=== PATIENT | female | born 1965 | race Caucasian/White ===

== ENCOUNTER 2018-12-29 13:19 | Emergency (ER) | payer MEDICARE, OTHER ==
[2018-12-29 13:23] VITALS: RESP 16; TEMP 97.8
--- NOTE | 2018-12-29 14:14 | ED ---
General Adult HPI - General Chief complaint: Extremity Problem,Nontraumatic Stated complaint: Shoulder pain Time Seen by Provider: 12/29/18 13:33 Source: patient, RN notes reviewed Mode of arrival: ambulatory Limitations: no limitations - History of Present Illness Initial comments: 53-year-old female presents emergency Department chief complaint of chronic neck and back pain. Patient states that she recently moved to 5 days ago from [place]. Patient states that she had a large amount lifting. Patient now has pain in her right trapezius region and radiating down her right arm. She also said chronic sciatica in which she has bilateral leg intermittent symptoms. She states that last time she had symptoms she was seen here. Patient states that she has no focal weakness denies any current headache, dizziness, blurred vision no chest pain or shortness of breath. Patient has not taken any current pain medicationsPatient denies any bowel bladder incontinence or retention - Related Data Home Medications Medication Instructions Recorded Confirmed ALPRAZolam [Xanax] 1 mg PO BID 10/26/15 10/26/15 Divalproex [Depakote] 250 mg PO TID 10/26/15 10/26/15 PARoxetine HCL [Paxil] 20 mg PO DAILY 10/26/15 10/26/15 Previous Rx's Medication Instructions Recorded HYDROcodone/APAP 5-325MG [[place] 1 tab PO Q6HR PRN #15 tab 10/26/15 5-325] Baclofen [Lioresal] 10 mg PO TID PRN #20 tablet 11/10/15 predniSONE 60 mg PO DAILY #30 tab 11/13/15 Cyclobenzaprine [Flexeril] 10 mg PO TID PRN #15 tab 12/29/18 predniSONE 50 mg PO DAILY #5 tab 12/29/18 Allergies Allergy/AdvReac Type Severity Reaction Status Date / Time acetaminophen Allergy Unknown Verified 12/29/18 13:24 [From Tylenol-Codeine #3] codeine phosphate Allergy Unknown Verified 12/29/18 13:24 [From Tylenol-Codeine #3] naproxen Allergy Unknown Verified 12/29/18 13:24 Review of Systems ROS Statement: Those systems with pertinent positive or pertinent negative responses have been documented in the HPI. ROS Other: All systems not noted in ROS Statement are negative. Past Medical History Past Medical History: No Reported History Additional Past Medical History / Comment(s): chronic pain due to cervical fracture. History of Any Multi-Drug Resistant Organisms: None Reported Past Surgical History: Hysterectomy Past Psychological History: Anxiety, Bipolar, Depression Smoking Status: Current every day smoker Past Alcohol Use History: None Reported Past Drug Use History: None Reported General Exam Limitations: no limitations General appearance: alert, in no apparent distress Head exam: Present: atraumatic, normocephalic, normal inspection Eye exam: Present: normal appearance, PERRL, EOMI. Absent: scleral icterus, conjunctival injection, periorbital swelling ENT exam: Present: normal exam, mucous membranes moist Neck exam: Present: normal inspection, tenderness (Trapezius tenderness), full ROM. Absent: meningismus, lymphadenopathy Respiratory exam: Present: normal lung sounds bilaterally. Absent: respiratory distress, wheezes, rales, rhonchi, stridor Cardiovascular Exam: Present: regular rate, normal rhythm, normal heart sounds. Absent: systolic murmur, diastolic murmur, rubs, gallop, clicks GI/Abdominal exam: Present: soft, normal bowel sounds. Absent: distended, tenderness, guarding, rebound, rigid Extremities exam: Present: other (Extremity strength equal bilaterally upper and lower 5/5, neurovascular intact, radial pulses equal probably, pedal pulses equal) Back exam: Present: full ROM, tenderness, paraspinal tenderness (Lumbar). Absent: vertebral tenderness Neurological exam: Present: alert, oriented X3, CN II-XII intact, reflexes normal. Absent: motor sensory deficit Skin exam: Present: warm, dry, intact, normal color. Absent: rash Course Vital Signs 12/29/18 13:20 Temperature 97.8 F Pulse Rate 65 Respiratory 16 Rate Blood Pressure 100/71 O2 Sat by Pulse 95 Oximetry Medical Decision Making - Medical Decision Making X-ray of cervical spine, x-ray of the lumbar spine shows chronic changes no acute abnormality. Patient symptoms are consistent with radiculopathy symptoms. She will be given prednisone at this time she is advised follow-up PCP and return for any worsening symptoms. Disposition Clinical Impression: Cervical radiculopathy, Low back pain Disposition: HOME SELF-CARE Condition: Stable Instructions (If sedation given, give patient instructions): Cervical Radiculopathy (ED) Additional Instructions: Please return to the Emergency Department if symptoms worsen or any other concerns. Prescriptions: Cyclobenzaprine [Flexeril] 10 mg PO TID PRN #15 tab PRN Reason: Muscle Spasm predniSONE 50 mg PO DAILY #5 tab Is patient prescribed a controlled substance at d/c from ED?: No Referrals: None,Stated [Primary Care Provider] - 1-2 days Time of Disposition: 14:28
--- NOTE | 2018-12-29 14:21 | XR ---
EXAMINATION TYPE: XR lumbosacral spine min 4V DATE OF EXAM: 12/29/2018 COMPARISON: NONE HISTORY: Back pain TECHNIQUE: 5 views FINDINGS: Vertebra have normal spacing and alignment. Posterior elements are intact. Sacroiliac joint s are normal. There is no compression fracture. IMPRESSION: Negative lumbar spine exam.
--- NOTE | 2018-12-29 14:23 | XR ---
EXAMINATION TYPE: XR cervical spine comp DATE OF EXAM: 12/29/2018 COMPARISON: 10/26/2015 HISTORY: Neck pain TECHNIQUE: 7 views FINDINGS: Vertebra have normal alignment. There is some narrowing and spurring at C5-6 and C6-7. Post erior elements are intact. There are no cervical ribs. Neuroforamina are fairly well-maintained. Atla ntoaxial facet joint is normal. IMPRESSION: Mild spondylotic changes in the lower cervical spine. No fracture. No change compared to old exam.
[2018-12-29] MEDS ORDERED: traMADol 50 MG STARTER PACK 3 TAB BTL PO STA (14:29)
[2018-12-29 14:42] VITALS: BP 110/72; PULSE 66
== END 2018-12-29 14:39 | disposition home or self-care (01) ==
LOC: EC 13:19
DX: M54.12 Radiculopathy, cervical region (principal); M54.5 Low back pain; F31.9 Bipolar disorder, unspecified; F41.9 Anxiety disorder, unspecified; F17.200 Nicotine dependence, unspecified, uncomplicated; Z88.5 Allergy status to narcotic agent; Z88.6 Allergy status to analgesic agent; Z79.899 Other long term (current) drug therapy; Z87.828 Personal history of other (healed) physical injury and trauma; X50.0XXA Overexertion from strenuous movement or load, initial encounter
CPT/HCPCS: 72050; 72110; 99283

== ENCOUNTER → 2019-03-07 | Outpatient (CLI) | payer MEDICARE ==
[2019-03-07 09:55] LABS: Basophils % (A) 0 %; Eosinophils # (A) 0.2 k/uL (0-0.7); Eosinophils % (A) 3 %; HCT 39.8 % (34.0-46.0); HGB 12.6 gm/dL (11.4-16.0); Lymphocytes # (A) 1.6 k/uL (1.0-4.8); Lymphocytes % (A) 20 %; MCH 28.9 pg (25.0-35.0); MCHC 31.7 g/dL (31.0-37.0); Mean Platelet Volume 6.8; Monocytes # (A) 0.4 k/uL (0-1.0); Monocytes % (A) 5 %; Neutrophils # (A) 5.7 k/uL (1.3-7.7); Neutrophils % (A) 71 %; Platelet Count 237 k/uL (150-450); RBC 4.37 m/uL (3.80-5.40); RDW 13.1 % (11.5-15.5); WBC 8.1 k/uL (3.8-10.6)
[2019-03-07 16:12] LABS: African American GFR (CKD) 114.6 (60.0-200.0); Anion Gap 3.2 mmol/L (4.00-12.00); BUN/Creat Ratio 25.71 Ratio (12.00-20.00); Calcium 9.1 mg/dL (8.7-10.3); Carbon Dioxide 26.8 mmol/L (21.6-31.8); Chol/HDL Ratio 4.44; LDL Cholesterol,Calculated 110.2 mg/dL (0.0-131.0); Non-African American GFR(CKD) 98.9 (60.0-200.0); Potassium 5.5 mmol/L (3.5-5.5); VLDL Calculation 68.8 mg/dL (5.00-40.00)
== END | disposition home or self-care (01) ==
LOC: LABWHC1 09:15
PROVIDERS: ATTEND Nurse Practitioner Adult Health
DX: M54.12 Radiculopathy, cervical region (principal); F31.32 Bipolar disorder, current episode depressed, moderate
CPT/HCPCS: 36415; 80048; 80061; 82306; 82607; 84443; 85025